=== PATIENT | female | born 1975 | race Caucasian/White ===

== ENCOUNTER → 2016-07-17 | Outpatient (CLI) | payer BC ==
[2016-07-17 12:39] LABS: MEAN PLATELET VOLUME 10.6 FL (7.4-10.4); RED BLOOD COUNT 4.77 10^6/uL (4.35-5.85); RED CELL DISTRIBUTION WIDTH 13.3 % (10.0-14.5); WHITE BLOOD COUNT 8.3 10^3/uL (4.3-11.0)
[2016-07-17 12:47] LABS: BILIRUBIN,URINE NEGATIVE (NEGATIVE); KETONES,URINE NEGATIVE (NEGATIVE); LEUKOCYTE ESTERASE ,URINE 1+ (NEGATIVE); NITRITE,URINE NEGATIVE (NEGATIVE); PH,URINE 6 (5-9); PROTEIN,URINE NEGATIVE (NEGATIVE); UROBILINOGEN,URINE NORMAL (NORMAL)
[2016-07-17 12:56] LABS: SQUAMOUS EPITHELIAL CELL,UR >50 /HPF
[2016-07-17 12:59] LABS: ALANINE AMINOTRANSFERASE 11 U/L (0-55); ANION GAP 10 MMOL/L (5-14); ASPARTATE AMINO TRANSFERASE 12 U/L (5-34); BILIRUBIN,TOTAL 0.3 MG/DL (0.1-1.0); BLOOD UREA NITROGEN 12 MG/DL (7-18); BUN/CREATININE RATIO 13; CALCIUM 9.2 MG/DL (8.5-10.1); CARBON DIOXIDE 24 MMOL/L (21-32); CHLORIDE 105 MMOL/L (98-107); CHOLESTEROL 169 MG/DL (< 200); CREATININE SERUM 0.89 MG/DL (0.60-1.30); DIRECT LDL 97 MG/DL (1-129); GFR ESTIMATED > 60; GLUCOSE 102 MG/DL (70-105); POTASSIUM 4.1 MMOL/L (3.6-5.0); SODIUM 139 MMOL/L (135-145); TOTAL PROTEIN 7.1 G/DL (6.4-8.2); TRIGLYCERIDES 159 MG/DL (<150); VLDL CHOLESTEROL 32 MG/DL (5-40)
[2016-07-17 13:19] LABS: THYROID STIMULATING HORMONE 1.09 UIU/ML (0.35-4.94)
--- NOTE | 2016-07-17 14:13 | Physician Query-Final Dx ---
THADDEUS WEINBERG 07/17/16 1413: Clinic Account Progress/Dx Physician Query: Please give diagnosis Please specify the location of the patients abd pain thank you Date of Service Jul 17, 2016 at 12:08 KYUNG GONZALEZ DO 07/20/16 0714: Clinic Account Progress/Dx DIAGNOSIS: Diagnosis upper THADDEUS WEINBERG Jul 17, 2016 14:13 KYUNG GONZALEZ DO Jul 20, 2016 07:14
== END ==
LOC: LAB 12:08
PROVIDERS: ATTEND Family Medicine
DX: E11.9 Type 2 diabetes mellitus without complications (principal); E03.9 Hypothyroidism, unspecified; R10.10 Upper abdominal pain, unspecified
CPT/HCPCS: 36415; 80053; 80061; 81000; 83036; 84443; 85027; 87088

== ENCOUNTER → 2022-07-17 | Outpatient (CLI) | payer BC, OTHER ==
--- NOTE | 2022-07-17 16:46 | Diagnostic Imaging Report ---
CLINICAL INDICATION: Patient has numbness and tingling in both arms and hands. Patient states she has a bone spur in the cervical spine area. EXAM: MRI of the cervical spine performed without IV contrast. Sequences include sagittal T2, sagittal T1, sagittal T2 fat-sat, and axial T2. COMPARISONS: None. FINDINGS: There is no acute cervical spine fracture or dislocation. There is straightening of the cervical spine posture. There are hypertrophic spurs seen throughout the cervical spine and facet arthropathy. Visualized posterior fossa with no significant abnormality. There is localized deformity of the cervical cord seen at the C6-C7 level due to disk disease. There is no significant paraspinal soft tissue abnormality. C1-C2: No significant central canal stenosis. C2-C3: There is moderate left facet arthropathy/hypertrophy and mild right facet arthropathy. There is mild to moderate left neural foramen narrowing. There is no significant right neural foramen narrowing. There is no significant central canal stenosis. C3-C4: There is moderate left facet arthropathy/hypertrophy. There is no significant right neural foramen narrowing. There is severe left neural foramen narrowing. There is a diffuse disk bulge with left subarticular disk spur. There is mild to moderate central canal stenosis. C4-C5: There is mild bilateral facet arthropathy. There is mild right neural foramen narrowing. There is no significant central canal or left neural foramen narrowing. C5-C6: There is a diffuse disk bulge with mild loss of disk space height. There is mild bilateral symmetric. There is no significant central spinal canal or neural foramen narrowing. C6-C7: There is diffuse disk bulge with superimposed broad left paracentral disk spur. There is moderate loss of disk space height. There is severe central canal stenosis. There is severe bilateral neural foramen narrowing with left-sided more than right. C7-T1: There is no significant central spinal canal or neural foramen narrowing. 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 Dictated by: Dictated on workstation # [id number]
== END ==
LOC: RAD 14:14
PROVIDERS: ATTEND Chiropractor
DX: M47.812 Spondylosis without myelopathy or radiculopathy, cervical region (principal); M50.322 Other cervical disc degeneration at C5-C6 level; M50.323 Other cervical disc degeneration at C6-C7 level
CPT/HCPCS: 72141